=== PATIENT | male | born 1945 | race Caucasian/White ===

== ENCOUNTER 2016-05-08 | Outpatient (CLI) | payer OTHER | END 2016-05-08 11:07 | disposition critical access hospital (66) | DX: R25.9 Unspecified abnormal involuntary movements (principal) | CPT/HCPCS: A0425; A0427 ==

== ENCOUNTER 2016-05-08 11:29 | Emergency (ER) | payer OTHER ==
[2016-05-08] MEDS ORDERED: SODIUM CHLORIDE 0.9% 500 ML IV ONE ×2 (12:26→13:58)
== END 2016-05-08 19:46 | disposition home or self-care (01) ==
DX: E16.2 Hypoglycemia, unspecified (principal); E86.0 Dehydration; R56.9 Unspecified convulsions; Z43.1 Encounter for attention to gastrostomy; I10 Essential (primary) hypertension; G62.9 Polyneuropathy, unspecified; R47.01 Aphasia; Z86.73 Personal history of transient ischemic attack (TIA), and cerebral infarction without residual deficits; Z87.891 Personal history of nicotine dependence; Z79.82 Long term (current) use of aspirin

== ENCOUNTER 2016-07-01 18:01 | Outpatient (CLI) | payer OTHER | END 2016-07-01 18:02 | disposition critical access hospital (66) | DX: R55 Syncope and collapse (principal); R29.810 Facial weakness | CPT/HCPCS: A0425; A0429 ==

== ENCOUNTER 2016-07-01 18:20 | Inpatient (IN) | payer OTHER ==
[2016-07-01] MEDS ORDERED: LORazepam 2 MG/ML SYRINGE ONE (18:29)
[2016-07-01] MEDS ORDERED: LORazepam 2 MG/ML SYRINGE IVP STA (18:29)
[2016-07-01] MEDS ORDERED: cefTRIAXone 1 GM in SODIUM CHLORIDE 0.9% MINIBAG 100 ML IV STA (21:52)
[2016-07-01] MEDS ORDERED: AZITHROMYCIN INJ 500 MG in SODIUM CHLORIDE 0.9% 250 ML IV STA (21:52)
[2016-07-01] MEDS ORDERED: cefTRIAXone 1 GM VIAL ONE (21:58)
[2016-07-01] MEDS ORDERED: CLINDAMYCIN 600 MG/50 ML 50 ML IV ONE ×2 (22:00→22:44)
[2016-07-01] MEDS ORDERED: SODIUM CHLORIDE FLUSH 0.9% 10 ML SYRINGE IVP PRN (22:24)
[2016-07-01] MEDS ORDERED: MORPHINE 2 MG/ML SYRINGE IVP PRN (22:24)
[2016-07-01] MEDS ORDERED: ACETAMINOPHEN 325 MG TABLET PO PRN (22:24)
[2016-07-01] MEDS ORDERED: ONDANSETRON 4 MG/2 ML VIAL IVP PRN (22:24)
[2016-07-01] MEDS ORDERED: PROCHLORPERAZINE 10 MG/2 ML VIAL IVP PRN (22:24)
[2016-07-01] MEDS ORDERED: ALBUTEROL NEB 2.5 MG/3 ML INH PRN (22:24)
[2016-07-01] MEDS ORDERED: oxyCODONE 5 MG TABLET PO PRN ×2 (22:24)
[2016-07-02] MEDS ORDERED: SODIUM CHLORIDE 0.9% 250 ML IV ONE (00:20)
[2016-07-02] MEDS: SODIUM CHLORIDE 0.9% 1,000 ML IV SCH ×3 (00:29→17:25)
[2016-07-02] MEDS: SODIUM CHLORIDE FLUSH 0.9% 10 ML SYRINGE IVP SCH ×3 (05:51→21:22)
[2016-07-02] MEDS: CLINDAMYCIN 900 MG/50 ML 50 ML IV SCH ×3 (06:05→23:46)
[2016-07-02] MEDS: PANTOPRAZOLE 40 MG TABLET PO SCH ×2 (06:06→06:16)
[2016-07-02] MEDS ORDERED: NON FORMULARY MED (Simvastatin [Simvastatin] 40 MG) PO SCH (09:00)
[2016-07-02] MEDS: ENOXAPARIN 40 MG/0.4 ML SYRINGE SUBQ SCH (09:14)
[2016-07-02] MEDS: POLYETHYLENE GLYCOL 3350 17 GM PACKET PO SCH (09:15)
[2016-07-02] MEDS: NORTRIPTYLINE 25 MG CAPSULE PO SCH (09:15)
[2016-07-02] MEDS: SACCHAROMYCES BOULARDII 250 MG CAPSULE PO SCH ×2 (09:15→17:12)
[2016-07-02] MEDS: ASPIRIN CHEW 81 MG TABLET PO SCH (09:15)
[2016-07-02] MEDS: cefTRIAXone 2 GM in SODIUM CHLORIDE 0.9% MINIBAG 100 ML IV SCH (21:21)
[2016-07-02] MEDS: ATORVASTATIN 10 MG TABLET PO SCH (21:21)
[2016-07-02] MEDS: AZITHROMYCIN INJ 500 MG in SODIUM CHLORIDE 0.9% 250 ML IV SCH (21:22)
[2016-07-03] MEDS: PANTOPRAZOLE 40 MG TABLET PO SCH (06:28)
[2016-07-03] MEDS: SODIUM CHLORIDE 0.9% 1,000 ML IV SCH ×2 (06:28→14:24)
[2016-07-03] MEDS: CLINDAMYCIN 900 MG/50 ML 50 ML IV SCH ×2 (06:28→14:23)
[2016-07-03] MEDS: SODIUM CHLORIDE FLUSH 0.9% 10 ML SYRINGE IVP SCH ×3 (06:29→22:07)
[2016-07-03] MEDS: NORTRIPTYLINE 25 MG CAPSULE PO SCH (08:12)
[2016-07-03] MEDS: ENOXAPARIN 40 MG/0.4 ML SYRINGE SUBQ SCH (08:12)
[2016-07-03] MEDS: ASPIRIN CHEW 81 MG TABLET PO SCH (08:12)
[2016-07-03] MEDS: SACCHAROMYCES BOULARDII 250 MG CAPSULE PO SCH ×2 (08:12→22:08)
[2016-07-03] MEDS: POLYETHYLENE GLYCOL 3350 17 GM PACKET PO SCH (08:13)
[2016-07-03] MEDS: CALCIUM CARBONATE CHEW 500 MG TABLET PO SCH ×2 (09:42→22:08)
[2016-07-03] MEDS ORDERED: GADOBUTROL 10 MMOL/10 ML VIAL IVP ONE (16:02)
[2016-07-03] MEDS: ATORVASTATIN 10 MG TABLET PO SCH (22:08)
[2016-07-03] MEDS: cefTRIAXone 2 GM in SODIUM CHLORIDE 0.9% MINIBAG 100 ML IV SCH (22:08)
[2016-07-03] MEDS: AZITHROMYCIN INJ 500 MG in SODIUM CHLORIDE 0.9% 250 ML IV SCH (22:56)
[2016-07-04] MEDS: CLINDAMYCIN 900 MG/50 ML 50 ML IV SCH ×2 (01:04→06:49)
[2016-07-04] MEDS: SODIUM CHLORIDE FLUSH 0.9% 10 ML SYRINGE IVP SCH ×2 (06:49→07:42)
[2016-07-04] MEDS: PANTOPRAZOLE 40 MG TABLET PO SCH (06:49)
[2016-07-04] MEDS: SODIUM CHLORIDE 0.9% 1,000 ML IV SCH (06:49)
[2016-07-04] MEDS: ASPIRIN CHEW 81 MG TABLET PO SCH (07:41)
[2016-07-04] MEDS: CALCIUM CARBONATE CHEW 500 MG TABLET PO SCH (07:41)
[2016-07-04] MEDS: SACCHAROMYCES BOULARDII 250 MG CAPSULE PO SCH (07:41)
[2016-07-04] MEDS: NORTRIPTYLINE 25 MG CAPSULE PO SCH (07:41)
[2016-07-04] MEDS: POLYETHYLENE GLYCOL 3350 17 GM PACKET PO SCH (07:42)
[2016-07-04] MEDS: ENOXAPARIN 40 MG/0.4 ML SYRINGE SUBQ SCH ×2 (07:42→07:49)
== END 2016-07-04 13:08 | disposition home health service (06) | DRG 177 ==
DX: J69.0 Pneumonitis due to inhalation of food and vomit (principal); G93.41 Metabolic encephalopathy; I69.351 Hemiplegia and hemiparesis following cerebral infarction affecting right dominant side; I69.321 Dysphasia following cerebral infarction; I69.392 Facial weakness following cerebral infarction; I69.320 Aphasia following cerebral infarction; I69.311 Memory deficit following cerebral infarction; L92.9 Granulomatous disorder of the skin and subcutaneous tissue, unspecified; S00.83XA Contusion of other part of head, initial encounter; S00.81XA Abrasion of other part of head, initial encounter; S00.31XA Abrasion of nose, initial encounter; W18.30XA Fall on same level, unspecified, initial encounter; Y92.009 Unspecified place in unspecified non-institutional (private) residence as the place of occurrence of the external cause; I10 Essential (primary) hypertension; E78.5 Hyperlipidemia, unspecified; Z79.82 Long term (current) use of aspirin; Z87.891 Personal history of nicotine dependence; Z98.890 Other specified postprocedural states

== ENCOUNTER 2016-09-15 04:00 | Outpatient (CLI) | payer OTHER | END 2016-09-15 04:01 | disposition critical access hospital (66) | LOC: EMS 04:00 | PROVIDERS: ATTEND Surgery | DX: R56.9 Unspecified convulsions (principal) | CPT/HCPCS: A0425; A0429 ==

== ENCOUNTER 2016-09-15 04:23 | Emergency (ER) | payer OTHER ==
[2016-09-15] MEDS ORDERED: levETIRAcetam 250 MG TABLET PO STA (06:05)
[2016-09-15] MEDS ORDERED: levETIRAcetam 250 MG TABLET ONE (06:09)
== END 2016-09-15 06:41 | disposition home or self-care (01) ==
DX: G40.909 Epilepsy, unspecified, not intractable, without status epilepticus (principal); I69.351 Hemiplegia and hemiparesis following cerebral infarction affecting right dominant side; I69.320 Aphasia following cerebral infarction; I10 Essential (primary) hypertension; G62.9 Polyneuropathy, unspecified; Z79.82 Long term (current) use of aspirin; Z87.891 Personal history of nicotine dependence
CPT/HCPCS: 36415; 51701; 70450; 80053; 80306; 80320; 81001; 83690; 83735; 84100; 84443; 85025; 87086; 99284; 99285; A9270

== ENCOUNTER 2016-12-16 23:25 | Outpatient (CLI) | payer OTHER | END 2016-12-16 23:26 | disposition short-term general hospital (02) | LOC: EMS 23:25 | PROVIDERS: ATTEND Surgery | DX: R40.4 Transient alteration of awareness (principal) | CPT/HCPCS: A0425; A0429; A0888 ==

== ENCOUNTER 2018-09-06 07:21 | Outpatient (CLI) | payer OTHER | END 2018-09-06 07:22 | disposition critical access hospital (66) | LOC: EMS 07:21 | PROVIDERS: ATTEND Surgery | DX: R56.9 Unspecified convulsions (principal) | CPT/HCPCS: A0425; A0429 ==

== ENCOUNTER 2018-09-06 07:45 | Emergency (ER) | payer OTHER ==
[2018-09-06] MEDS ORDERED: levETIRAcetam 250 MG TABLET PO STA (07:59)
--- NOTE | 2018-09-06 08:18 | ED Physician Documentation ---
PD HPI SEIZURE - Stated complaint Stated Complaint: SZ - Chief complaint Chief Complaint: Neuro - History obtained from History obtained from: Friend (The patient has a really close friend that has been his friend for a long time who lives with him and his primary caregiver. His friend has seen the patient through his stroke 5 years ago and has seen a couple of seizures in the past. The patient had been feeling well last few days without any obvious abnormalities. He had been seen at the [facility] a week ago and had been having tapered dose of his Keppra and last week had his medication discontinued since he had been a couple of years without seizures. The patient had a witnessed seizure lasting about a minute this morning without any apparent injury.) - History of Present Illness Timing - onset: How many minutes ago (30) Witnessed: Witnessed Number of seizures: Single, Lasted minutes (1) Description of seizure activity: Generalized Injury during seizure: None. No: Fell, Head injury Associated symptoms: None. No: Dyspnea, Nausea / vomiting History of seizures: Known seizure disorder Contributing factors: Off meds (Discontinued his Keppra at the direction of his primary care at the [facility] last week.) Similar symptoms before: Diagnosis (He had a significant stroke about 5 years ago with a subsequent seizure disorder.) Recently seen: Clinic (last week at the [facility]) Review of Systems Unable to obtain: Other (The patient is not able to answer to well due to his prior stroke and aphasia. He is able to follow commands and answer some yes and no. He seems in a good mood at this time smiling and pleasant. There is no obvious injury. Review of systems primarily from his friend who is his caregiver.) Constitutional: denies: Fever Nose: denies: Congestion Cardiac: denies: Chest pain / pressure Respiratory: denies: Cough GI: denies: Vomiting, Diarrhea Skin: denies: Rash Neurologic: denies: Headache, Head injury PD PAST MEDICAL HISTORY - Past Medical History Cardiovascular: Hypertension, High cholesterol Respiratory: None Endocrine/Autoimmune: None GI: None, Chronic constipation : None HEENT: Chronic vision loss, Other Psych: Post traumatic stress disorder Derm: None - Past Surgical History Past Surgical History: Yes HEENT: Other - Present Medications Home Medications: Ambulatory Orders Medication Instructions Recorded Confirmed Aspirin [Jack Chewable Aspirin] 81 mg PO DAILY 08/06/15 09/15/16 Simvastatin 40 mg PO DAILY 08/06/15 09/15/16 Levetiracetam [Keppra] 750 mg PO BID #60 tablet 09/15/16 Mirtazapine 1 tab PO DAILY 09/15/16 09/15/16 Vitamin E 1,000 unit PO DAILY 09/15/16 09/15/16 - Allergies Allergies/Adverse Reactions: Allergies Allergy/AdvReac Type Severity Reaction Status Date / Time No Known Drug Allergies Allergy Verified 09/15/16 04:50 - Living Situation Living Situation: reports: With friend(s) Living Arrangement: reports: At home - Social History Does the pt smoke?: No Smoking Status: Former smoker Does the pt drink ETOH?: No Does the pt have substance abuse?: No - Family History Family history: reports: Non contributory - Immunizations Immunizations are current?: Yes - POLST Patient has POLST: No PD ED PE NORMAL - Vitals Vital signs reviewed: Yes - General General: Alert and oriented X 3, Well developed/nourished - HEENT HEENT: Atraumatic, Moist mucous membranes, Pharynx benign - Neck Neck: Supple, no meningeal sign, No adenopathy - Cardiac Cardiac: RRR, No murmur - Respiratory Respiratory: Clear bilaterally - Abdomen Abdomen: Soft, Non tender - Derm Derm: Normal color, Warm and dry - Extremities Extremities: No tenderness to palpate, No edema, No calf tenderness / cord - Neuro Neuro: Other (right sided weakness and decreased sensation, baseline from prior CVA, according to his friend.). No: Alert and oriented X 3 (He is alert and smiling and interacts. He follows commands. He answers yes and no and some mild words. He has a right sided arm and leg weakness consistent with a prior stroke. His friend who is with him now states he is at his baseline mentation and interaction.) Eye Opening: Spontaneous Motor: Obeys Commands Verbal: Oriented GCS Score: 15 Results - Vitals Vitals: Vital Signs - 24 hr 09/06/18 09/06/18 09/06/18 07:48 07:53 09:27 Temperature 36.7 C Heart Rate 87 74 Respiratory 20 18 16 Rate Blood Pressure 125/94 H 136/70 H O2 Saturation 92 95 Oxygen O2 Source Room air - Labs Labs: Laboratory Tests 09/06/18 09/06/18 08:18 08:18 WBC 9.3 RBC 5.17 Hgb 14.9 Hct 45.3 MCV 87.6 MCH 28.8 MCHC 32.9 RDW 14.6 Plt Count 241 MPV 7.8 Neut # (Auto) 6.9 H Lymph # (Auto) 1.4 L [place] # (Auto) 0.6 Eos # (Auto) 0.4 Baso # (Auto) 0.1 Absolute Nucleated RBC 0.00 Nucleated RBC % 0.0 Manual Slide Review Indicated WBC Morphology NORMAL APPEARANCE Platelet Estimate NORMAL (130-450,000) Platelet Morphology RARE GIANT PLATELETS RBC Morph Micro Appear NORMAL APPEARANCE Sodium 137 Potassium 4.4 Chloride 100 L Carbon Dioxide 25 Anion Gap 12.0 BUN 18 Creatinine 1.4 H Estimated GFR (MDRD) 50 L Glucose 111 H Calcium 8.9 Magnesium 2.8 Total Bilirubin 1.1 H AST 25 ALT 24 Alkaline Phosphatase 75 Total Protein 6.9 Albumin 3.9 Globulin 3.0 Albumin/Globulin Ratio 1.3 Lipase 27 PD MEDICAL DECISION MAKING - ED course Complexity details: re-evaluated patient, considered differential (The most obvious cause and effect is the stopping of his seizure medicines and now having a general seizure. He is been a couple years without one but at this point would presume he needs to be on mild dose at least. I will have him resume his Keppra and [facility]. There is no other obvious injury at this point. Will check basic electrolytes and perhaps a urine test for infection and metabolic disorder. No report of injury and he does not seem to have a headache so I do not see a reason for scan.), d/w patient Departure - Departure Disposition: 01 Home, Self Care Clinical Impression: Grand mal seizure, Seizure disorder as sequela of cerebrovascular accident Condition: Stable Record reviewed to determine appropriate education?: Yes Follow-Up: Janusz Lo MD [Primary Care Provider] - Comments: Resume the Keppra at the half tablet twice daily. Contact your primary care regarding ongoing dosing and prescription. Continue other usual medicines and stay well-hydrated. Discharge Date/Time: 09/06/18 09:28
[2018-09-06 08:28] LABS: BASOPHILS # (AUTO) 0.1 10^3/uL (0.0-0.1); BASOPHILS % (AUTO) 0.6 %; EOSINOPHILS # (AUTO) 0.4 10^3/uL (0.0-0.7); HGB - HEMOGLOBIN 14.9 g/dL (14.0-18.0); LYMPHOCYTES # (AUTO) 1.4 10^3/uL (1.5-3.5); LYMPHOCYTES % (AUTO) 15.3 %; MEAN CORPUSCULAR HEMOGLOBIN 28.8 pg (27.0-31.0); MEAN CORPUSCULAR HGB CONC 32.9 g/dL (32.0-36.0); MEAN CORPUSCULAR VOLUME 87.6 fL (80.0-94.0); MEAN PLATELET VOLUME 7.8 fL (7.4-11.4); MONOCYTES # (AUTO) 0.6 10^3/uL (0.0-1.0); MONOCYTES % (AUTO) 6.2 %; NEUTROPHILS # (AUTO) 6.9 10^3/uL (1.5-6.6); NEUTROPHILS % (AUTO) 73.9 %; PLT - PLATELET COUNT 241 10^3/uL (130-450); RED BLOOD COUNT 5.17 10^6/uL (4.70-6.10); RED CELL DISTRIBUTION WIDTH 14.6 % (12.0-15.0); WHITE BLOOD COUNT 9.3 x10^3/uL (4.8-10.8)
[2018-09-06 08:41] LABS: ALBUMIN 3.9 g/dL (3.2-5.5); ALBUMIN/GLOBULIN RATIO 1.3 (1.0-2.2); BILIRUBIN,TOTAL 1.1 mg/dL (0.2-1.0); CALCIUM 8.9 mg/dL (8.5-10.3); CREATININE 1.4 mg/dL (0.6-1.2); MAGNESIUM 2.8 mg/dL (1.7-2.8); TOTAL PROTEIN 6.9 g/dL (6.7-8.2)
[2018-09-06 09:04] LABS: PLATELET ESTIMATE, MANUAL NORMAL (130-450,000) (NORMAL); PLATELET MORPHOLOGY RARE GIANT PLATELETS (NORMAL); RBC MORPHOLOGY (MULTIPLE) NORMAL APPEARANCE (NORMAL)
[2018-09-06 09:28] VITALS: BP 136/70
== END 2018-09-06 09:28 | disposition home or self-care (01) ==
LOC: EDUNIT# → EDBD → ED 07:45
DX: G40.409 Other generalized epilepsy and epileptic syndromes, not intractable, without status epilepticus (principal); I69.320 Aphasia following cerebral infarction; I69.398 Other sequelae of cerebral infarction; I10 Essential (primary) hypertension; Z87.891 Personal history of nicotine dependence
CPT/HCPCS: 36415; 80053; 83690; 83735; 85025; 99283; 99284; A9270